=== PATIENT | female | born 1975 | race Caucasian/White ===

== ENCOUNTER 2018-02-02 03:35 | Emergency (ER) | payer OTHER ==
[~2018-02-02] VITALS: Ht 167.6 cm; Wt 79.1 kg
[2018-02-02 03:40] VITALS: BP 145/83
--- NOTE | 2018-02-02 03:43 | NUR ---
TO BED # 8 AMBULATORY, REPORT GIVEN TO HAYLEY PALACIOS
--- NOTE | 2018-02-02 03:53 | NUR ---
EKG PERFORMED AT BEDSIDE, PT COVERED WITH GOWN DURING PROCEDURE
--- NOTE | 2018-02-02 04:00 | NUR ---
BIB SELF C/O CHEST PRESSURE SINCE YESTERDAY W/ SOB. RR EVEN AND UNLABORED, BL BS CLEAR THROUGHOUT. PT C/O CHEST PRESSURE STARTING YESTERDAY AT REST. PT APPEARS TO BE IN NO ACUTE DISTRESS AT THIS TIME. PT IS SITTING IN BED, AWAKE, AND ACTING APPROPRIATE. PMH PREDIABETIC NKDA
[2018-02-02] MEDS ORDERED: ALUMINUM HYD/MAG/SIMETHICONE 30 ML, DICYCLOMINE HCL LIQUID 20 MG, LIDOCAINE VISCOUS 2% ... PO ONE ×3 (04:10)
[2018-02-02] MEDS ORDERED: FAMOTIDINE 20 MG TAB PO ONE (04:10)
[2018-02-02] MEDS ORDERED: ONDANSETRON 4 MG ODT PO ONE (04:10)
--- NOTE | 2018-02-02 04:29 | NUR ---
XRAY AT BEDSIDE.
[2018-02-02 04:31] LABS: BASOPHILS % (AUTO) 0.6 % (0.0-2.0); EOSINOPHILS # (AUTO) 0.2 K/uL (0-0.4); HEMATOCRIT 37.7 % (36-48); HEMOGLOBIN 12.5 g/dL (12.0-16.0); LYMPHOCYTES # (AUTO) 2.7 K/uL (2.5-16.5); MEAN CORPUSCULAR HEMOGLOBIN 29 pg (27-31); MEAN CORPUSCULAR HGB CONC 33 g/dL (33-37); MEAN CORPUSCULAR VOLUME 85.9 fL (80-94); MONOCYTES # (AUTO) 0.7 K/uL (0.8-1.0); MONOCYTES % (AUTO) 8.6 % (1.7-9.3); NEUTROPHILS # (AUTO) 4.1 K/uL (1.8-7.7); NEUTROPHILS % (AUTO) 52.8 % (42.2-75.2); PLATELET COUNT (AUTO) 208 K/uL (140-450); RED BLOOD CELL COUNT(AUTO) 4.39 MIL/uL (4.20-5.40); RED CELL DISTRIBUTION WIDTH 13.1 % (11.6-13.7); WHITE BLOOD COUNT (AUTO) 7.8 K/uL (4.8-10.8)
[2018-02-02 04:52] LABS: ANION GAP 9.4 (8-16); CREATININE 0.5 mg/dL (0.6-1.3); POTASSIUM 3.4 mmol/L (3.5-5.1)
[2018-02-02 04:56] LABS: ALBUMIN 3.4 g/dL (3.4-5.0); TOTAL BILIRUBIN 0.3 mg/dL (0.0-1.0)
--- NOTE | 2018-02-02 05:30 | NUR ---
PT SITTING IN BED, APPEARS TO BE IN NO ACUTE DISTRESS, STATES FEELS BETTER.
--- NOTE | 2018-02-02 05:32 | NUR ---
PENDING D/C PAPERWORK FROM DR MATHUR.
[2018-02-02 06:13] VITALS: BP 133/71
--- NOTE | 2018-02-02 06:13 | NUR ---
Patient discharged with v/s stable. Written and verbal after care instructions given and explained. Patient alert, oriented and verbalized understanding of instructions. Ambulatory with steady gait. All questions addressed prior to discharge. ID band removed. Patient advised to follow up with PMD. Rx of Albuterol and Acetaminophen given. Patient educated on indication of medication including possible reaction and side effects. Opportunity to ask questions provided and answered.
== END 2018-02-02 06:13 | disposition home or self-care (01) ==
LOC: MED 03:35
DX: R21 Rash and other nonspecific skin eruption (principal)
CPT/HCPCS: 36415; 71045; 80053; 82948; 84484; 85025; 93005; 99285; Q0092; S0119